=== PATIENT | male | born 1970 | race African-American/Black ===

== ENCOUNTER 2018-12-29 08:54 | Inpatient (IN) | payer BC ==
[2018-12-29 09:47] VITALS: BMI 27.6
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
[2018-12-29] MEDS ORDERED: DICYCLOMINE HCL 10 MG CAPSULE PO PRN (13:31)
[2018-12-29] MEDS ORDERED: diazePAM 5 MG TABLET PO PRN (13:31)
[2018-12-29] MEDS ORDERED: ACETAMINOPHEN 325 MG TABLET (FP) PO PRN ×2 (13:31)
[2018-12-29] MEDS ORDERED: IBUPROFEN 400 MG TABLET (FP) PO PRN (13:31)
[2018-12-29] MEDS ORDERED: MENTHOL/PHENOL 1 EACH UD MM PRN (13:31)
[2018-12-29] MEDS ORDERED: MAG HYDROX/AL HYDROX/SIMETH 30 ML UNIT-DOSE CUP PO PRN (13:31)
[2018-12-29] MEDS ORDERED: MAGNESIUM HYDROX 2400MG/30ML ORAL SUSPENSION 30 ML CUP PO PRN (13:31)
[2018-12-29] MEDS ORDERED: MAGNESIUM CITRATE 300 ML BOTTLE PO PRN (13:31)
[2018-12-29] MEDS: THIAMINE HCL 100 MG TABLET (FP) PO SCH (22:34)
[2018-12-29] MEDS: MELATONIN 5 MG TABLETS PO PRN (22:35)
[2018-12-29] MEDS: diazePAM 5 MG TABLET PO SCH (22:35)
[2018-12-30] MEDS: diazePAM 5 MG TABLET PO SCH ×3 (05:11→14:54)
[2018-12-30] MEDS ORDERED: PRENATAL VITAMINS W/ FOLIC ACID TABLET (FP) PO SCH (10:00)
--- NOTE | 2018-12-30 10:34 | PN ---
S CIWA - CIWA Score Nausea/Vomitin Muscle Tremors: 2 Anxiety: 3 Agitation: 3 Paroxysmal Sweats: 3 Orientation: 0-Oriented Tacttile Disturbances: 0-None Auditory Disturbances: 0-None Visual Disturbances: 0-None Headache: 0-None Present CIWA-Ar Total Score: 13 BHS Progress Note (SOAP) Subjective: sweats Requesting to know why he was brought here and house rules Anxious Objective: 12/30/18 10:33 A & Ox 3 Gait steady No acute distress noted Vital Signs Temperature 98.0 F 12/30/18 09:50 Pulse Rate 101 H 12/30/18 09:50 Respiratory Rate 18 12/30/18 09:50 Blood Pressure 169/100 12/30/18 09:50 O2 Sat by Pulse Oximetry (%) Bp elevated,HR - 101. Pt has HTN. Denies Headache, palpitations nor any cardiac symptoms at this time LAb results pending at this time Assessment: 12/30/18 10:41 withdrawal sx HTN Plan: Continue detox Home BP meds continued Counselors Jessi and pipe fitter supervisor Juliana made aware of pt's concerns and orientated to unit and services ordered.
[2018-12-30] MEDS ORDERED: amLODIPine BESYLATE 10 MG TABLET (FP) PO SCH (10:45)
[2018-12-30 10:49] LABS: HEMATOCRIT 38.2 % (35.4-49); HEMOGLOBIN 12.4 GM/dL (11.7-16.9); MCH 33.1 pg (25.7-33.7); MCHC 32.6 g/dl (32.0-35.9); MEAN CELL VOLUME 101.6 fl (80-96); PLATELET COUNT 192 K/MM3 (134-434); RBC 3.76 M/mm3 (4.00-5.60); WHITE BLOOD COUNT 5.7 K/mm3 (4.0-10.0)
[2018-12-30 11:02] LABS: ALBUMIN 3.8 g/dl (3.4-5.0); ALK PHOS 159 U/L (45-117); ANION GAP 7 MMOL/L (8-16); BILIRUBIN,TOTAL 0.3 mg/dL (0.2-1); BLOOD UREA NITROGEN 27 mg/dL (7-18); CALCIUM 8.6 mg/dL (8.5-10.1); CHLORIDE 105 mmol/L (98-107); CO2 26 mmol/L (21-32); CREATININE 1.6 mg/dL (0.55-1.3); GLUCOSE,RANDOM 92 mg/dL (74-106); POTASSIUM 3.9 mmol/L (3.5-5.1); SGOT/AST 78 U/L (15-37); SGPT/ALT 132 U/L (13-61); SODIUM 138 mmol/L (136-145); TOT PROT 7.1 g/dl (6.4-8.2)
[2018-12-30] MEDS: CARVEDILOL 25 MG TABLET (FP) PO SCH ×2 (12:19→22:27)
[2018-12-30] MEDS ORDERED: chlordiazePOXIDE HCL 25 MG CAPSULE PO PRN (19:09)
--- NOTE | 2018-12-30 19:14 | PN ---
[facility] Progress Note Note: patient would like the regimen to change from valium to librium,regimen changed, has been coughing with greenish mucous for 3 days,lung clear,no wheezing bronchitis to give zithromax 500 mgs po now then 250 mgs po daily from 12/31/18 for 3 days also has been on antivert 12.5 mg po bid close monitoring,regimen changed to librium
[2018-12-30] MEDS ORDERED: MECLIZINE HCL 12.5 MG TABLET PO ONE (19:15)
[2018-12-30] MEDS ORDERED: AZITHROMYCIN 250 MG TABLET PO ONE (19:15)
[2018-12-30] MEDS ORDERED: MECLIZINE HCL 12.5 MG TABLET PO SCH (22:00)
[2018-12-30] MEDS ORDERED: ATORVASTATIN CA 40 MG TABLET (FP) PO SCH (22:00)
[2018-12-30] MEDS: THIAMINE HCL 100 MG TABLET (FP) PO SCH (22:26)
[2018-12-30] MEDS: MELATONIN 5 MG TABLETS PO PRN (22:27)
[2018-12-30] MEDS: chlordiazePOXIDE HCL 25 MG CAPSULE PO SCH (22:27)
[2018-12-31] MEDS: chlordiazePOXIDE HCL 25 MG CAPSULE PO SCH (05:23)
[2018-12-31 09:55] VITALS: BP 151/101; PULSE 75; TEMP 96.1
[2018-12-31] MEDS ORDERED: AZITHROMYCIN 250 MG TABLET PO SCH (10:00)
[2018-12-31] MEDS ORDERED: diazePAM 5 MG TABLET PO SCH (10:00)
--- NOTE | 2018-12-31 12:59 | DS ---
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 patient declined Pertinent Past History: discuss benefits of sobriety - Physical Exam Results Vital Signs: Vital Signs Temperature 96.1 F L 12/31/18 09:54 Pulse Rate 75 12/31/18 09:54 Respiratory Rate 18 12/31/18 09:54 Blood Pressure 151/101 H 12/31/18 09:54 O2 Sat by Pulse Oximetry (%) Pertinent Admission Physical Exam Findings: alcohol withdrawal sx Laboratory Last Values WBC 5.7 K/mm3 (4.0-10.0) 12/30/18 07:45 RBC 3.76 M/mm3 (4.00-5.60) L 12/30/18 07:45 Hgb 12.4 GM/dL (11.7-16.9) 12/30/18 07:45 Hct 38.2 % (35.4-49) 12/30/18 07:45 MCV 101.6 fl (80-96) H 12/30/18 07:45 MCH 33.1 pg (25.7-33.7) 12/30/18 07:45 MCHC 32.6 g/dl (32.0-35.9) 12/30/18 07:45 RDW 13.0 % (11.9-15.9) 12/30/18 07:45 Plt Count 192 K/MM3 (134-434) 12/30/18 07:45 MPV 9.0 fl (7.5-11.1) 12/30/18 07:45 Sodium 138 mmol/L (136-145) 12/30/18 07:45 Potassium 3.9 mmol/L (3.5-5.1) 12/30/18 07:45 Chloride 105 mmol/L (98-107) 12/30/18 07:45 Carbon Dioxide 26 mmol/L (21-32) 12/30/18 07:45 Anion Gap 7 MMOL/L (8-16) L 12/30/18 07:45 BUN 27 mg/dL (7-18) H 12/30/18 07:45 Creatinine 1.6 mg/dL (0.55-1.3) H 12/30/18 07:45 Creat Clearance w eGFR 46.37 (>60) 12/30/18 07:45 Random Glucose 92 mg/dL (74-106) 12/30/18 07:45 Calcium 8.6 mg/dL (8.5-10.1) 12/30/18 07:45 Total Bilirubin 0.3 mg/dL (0.2-1) 12/30/18 07:45 AST 78 U/L (15-37) H 12/30/18 07:45 ALT 132 U/L (13-61) H 12/30/18 07:45 Alkaline Phosphatase 159 U/L (45-117) H 12/30/18 07:45 Total Protein 7.1 g/dl (6.4-8.2) 12/30/18 07:45 Albumin 3.8 g/dl (3.4-5.0) 12/30/18 07:45 RPR Titer Nonreactive (NONREACTIVE) 12/30/18 07:45 lab oted discuss consequences of liver enzyme elevation related to alcohol consumption - Treatment Hospital Course: Detox Protocol Followed, Responded well Patient has Accepted a Rehab Referral to: [facility] help support group - Medication Discharge Medications: Ambulatory Orders Amlodipine Besylate 10 mg PO DAILY 12/29/18 Atorvastatin Ca [Lipitor] 40 mg PO HS 12/29/18 Carvedilol 25 mg PO BID 12/29/18 Meclizine HCl 12.5 mg PO BID 12/29/18 - Diagnosis (1) Alcohol dependence with uncomplicated withdrawal Status: Acute (2) Hypertension Status: Chronic Qualifiers: Hypertension type: essential hypertension Qualified Code(s): I10 - Essential (primary) hypertension (3) Vertigo Status: Chronic - AMA Did Patient Leave Against Medical Advice: Yes
[2018-12-31] MEDS ORDERED: chlordiazePOXIDE HCL 25 MG CAPSULE PO SCH (23:00)
[2019-01-01] MEDS ORDERED: diazePAM 5 MG TABLET PO SCH (06:00)
[2019-01-01] MEDS ORDERED: chlordiazePOXIDE HCL 10 MG CAPSULE PO SCH (23:00)
[2019-01-01] MEDS ORDERED: chlordiazePOXIDE HCL 10 MG CAPSULE PO PRN (23:00)
[2019-01-02] MEDS ORDERED: chlordiazePOXIDE HCL 10 MG CAPSULE PO SCH (23:00)
== END 2018-12-31 11:12 | disposition left against medical advice (07) | DRG 770 ==
LOC: YASAS 08:54 → Y3N 13:56
PROVIDERS: ADMIT Surgery; ATTEND Surgery
PROC: HZ2ZZZZ Detoxification Services for Substance Abuse Treatment (ICD-10-PCS; principal; 2018-12-29)
DX: F10.230 Alcohol dependence with withdrawal, uncomplicated (principal); I10 Essential (primary) hypertension; R42 Dizziness and giddiness; J40 Bronchitis, not specified as acute or chronic; Z86.79 Personal history of other diseases of the circulatory system
CPT/HCPCS: 36415; 80053; 85027; 86593